=== PATIENT | female | born 2000 | race Two or more races ===

== ENCOUNTER 2024-03-13 20:18 | Observation (INO) | payer MEDICAID, SELFPAY ==
[2024-03-13] VITALS (44 sets, daily range): BP systolic 126; BP diastolic 77; PULSE 72–114; RESP 16–97; TEMP 36.7; O2SAT 88–100; BMI 37.0
[2024-03-13] MEDS: TERBUTALINE SULF INJ 1 MG/ML VIAL 0.25 MG SC (22:46)
--- NOTE | 2024-03-14 01:16 | PC.NURSE ---
call received from lab stating wrong swab collection tube was used. unable to re collect due to pt discharged home. order cancelled.
== END 2024-03-13 23:45 | disposition home or self-care (01) ==
PROVIDERS: Admitting Provider Obstetrics & Gynecology; PCP Family Medicine; Visit Provider Obstetrics & Gynecology
DX: O47.03 False labor before 37 completed weeks of gestation, third trimester (principal); Z3A.34 34 weeks gestation of pregnancy
CPT/HCPCS: 59899; 81514; 96372; J3105

== ENCOUNTER 2024-04-04 10:49 | Observation (INO) | payer MEDICAID, SELFPAY ==
[2024-04-04 10:59] VITALS: BP 122/94; PULSE 123
[2024-04-04 11:03] VITALS: BP 119/89; PULSE 96
[2024-04-04 11:10] VITALS: BP 119/89; PULSE 899; RESP 20; RESP 97; TEMP 36.9
[2024-04-04 11:23] VITALS: TEMP 36.9; BMI 36.9
== END 2024-04-04 11:50 | disposition home or self-care (01) ==
PROVIDERS: Admitting Provider Obstetrics & Gynecology; Visit Provider Obstetrics & Gynecology
DX: O26.893 Other specified pregnancy related conditions, third trimester (principal); Z3A.37 37 weeks gestation of pregnancy; R10.9 Unspecified abdominal pain
CPT/HCPCS: 59025; 59899

== ENCOUNTER 2024-04-10 21:07 | Observation (INO) | payer MEDICAID, SELFPAY ==
[2024-04-10 21:15] VITALS: TEMP 37.2; BMI 37.9
[2024-04-10 21:25] VITALS: BP 117/78; PULSE 100; RESP 16; RESP 98; TEMP 37.2
[2024-04-10 21:26] VITALS: BP 117/78; PULSE 100
== END 2024-04-10 22:10 | disposition home or self-care (01) ==
PROVIDERS: Admitting Provider Obstetrics & Gynecology; Visit Provider Obstetrics & Gynecology
DX: O46.93 Antepartum hemorrhage, unspecified, third trimester (principal); Z3A.38 38 weeks gestation of pregnancy
CPT/HCPCS: 59025; 59899; G0378

== ENCOUNTER 2024-04-18 12:34 | Outpatient (RCR) | payer MEDICAID, SELFPAY ==
--- NOTE | 2024-04-18 12:45 | XR_ITS ---
Examination: Biophysical profile, ultrasound Date and time of exam: April 18, 2024 1312 hrs. Indications: Diagnosis maternal obesity Technique: Multiple transabdominal sonographic images of the pelvis abdomen obtained. Attention is directed to the breathing movement, gross body movement, amniotic fluid volume and tone. Findings: Amniotic fluid index 9 cm Total biophysical profile is 8 of 8. breathing movement is 2. Gross body movement is 2. tone is 2. Qualitative amniotic fluid volume is 2 Impression: Biophysical profile is 8 of 8.
[2024-04-18 13:43] VITALS: BP 124/82; PULSE 75; RESP 16; TEMP 36.7
== END 2024-04-18 23:59 | disposition home or self-care (01) ==
LOC: S4S1 12:34
PROVIDERS: Referring Provider Nurse Practitioner Women's Health; Visit Provider Nurse Practitioner Women's Health
DX: O99.213 Obesity complicating pregnancy, third trimester (principal); E66.9 Obesity, unspecified; Z3A.39 39 weeks gestation of pregnancy
CPT/HCPCS: 59025; 76819